=== PATIENT | female | born 1990 | race Caucasian/White ===

== ENCOUNTER 2020-03-21 00:21 | Emergency (ER) | payer OTHER ==
[~2020-03-21] VITALS: Ht 154.9 cm; Wt 63.6 kg
[2020-03-21 01:28] LABS: BASOPHILS % (AUTO) 0.6 % (0.0-2.0); EOSINOPHILS % (AUTO) 2.6 % (1.0-6.0); HEMATOCRIT 36.3 % (36-46); HEMOGLOBIN 11.4 g/dL (12.0-16.0); LYMPHOCYTES # (AUTO) 1.9 K/uL (1.0-4.8); LYMPHOCYTES % (AUTO) 27.8 % (22.0-44.0); MEAN CORPUSCULAR HEMOGLOBIN 24.8 pg (26.0-34.0); MEAN CORPUSCULAR HGB CONC 31.3 G/dL (31.0-37.0); MEAN CORPUSCULAR VOLUME 79 fL (80-100); MONOCYTES # (AUTO) 0.5 K/uL (0.1-1.0); MONOCYTES % (AUTO) 7.8 % (2.0-9.0); NEUTROPHILS # (AUTO) 4.3 K/uL (1.8-7.7); NEUTROPHILS % (AUTO) 61.2 % (40.0-70.0); PLATELET COUNT (AUTO) 286 K/uL (150-450); RED BLOOD CELL COUNT(AUTO) 4.58 MIL/uL (4.00-5.20); RED CELL DISTRIBUTION WIDTH 18.1 % (11.5-14.5)
[2020-03-21 01:32] LABS: ANION GAP 10 mmol/L (8-16); CALCIUM, TOTAL 9.1 mg/dL (8.8-10.5); CARBON DIOXIDE 26 mmol/L (22-29); CHLORIDE 102 mmol/L (98-107); CREATININE 0.72 mg/dL (0.60-1.30); GLOMERULAR FILTR. RATE CALC > 60 mL/min (>60); GLUCOSE,RANDOM 83 mg/dL (70-110); POTASSIUM 3.9 mmol/L (3.5-5.1); SODIUM SERUM 138 mmol/L (136-145); UREA NITROGEN, BLOOD 17 mg/dL (7-18)
[2020-03-21 01:45] LABS: ALANINE AMINOTRANSFERASE 64 U/L (12-78); ALKALINE PHOSPHATASE 61 U/L (46-116); ASPARTATE AMINOTRANSFERASE 44 U/L (15-37); BILIRUBIN,TOTAL 0.5 mg/dL (0.1-1.0); HCG,QUANTITATIVE < 1 mIU/mL (0-6); TOTAL PROTEIN, SERUM 7.7 g/dL (6.4-8.2)
[2020-03-21 01:59] VITALS: BP 121/72
== END 2020-03-21 02:18 | disposition home or self-care (01) ==
LOC: EMS 00:23
DX: F10.20 Alcohol dependence, uncomplicated (principal); Y90.0 Blood alcohol level of less than 20 mg/100 ml
CPT/HCPCS: 36415; 80053; 84702; 85025; 99283; G0480

== ENCOUNTER 2023-02-11 21:00 | Inpatient (IN) | payer OTHER ==
[~2023-02-11] VITALS: Ht 157.5 cm; Wt 61.0 kg
[2023-02-11 22:40] LABS: BASOPHILS % (AUTO) 0.9 % (0.0-2.0); EOSINOPHILS % (AUTO) 1.7 % (1.0-6.0); HEMATOCRIT 34.4 % (36-46); HEMOGLOBIN 11.1 g/dL (12.0-16.0); LYMPHOCYTES # (AUTO) 2.1 K/uL (1.0-4.8); LYMPHOCYTES % (AUTO) 26.9 % (22.0-44.0); MEAN CORPUSCULAR HGB CONC 32.3 G/dL (31.0-37.0); MEAN CORPUSCULAR VOLUME 80 fL (80-100); MONOCYTES # (AUTO) 0.6 K/uL (0.1-1.0); MONOCYTES % (AUTO) 8.3 % (2.0-9.0); NEUTROPHILS # (AUTO) 4.8 K/uL (1.8-7.7); NEUTROPHILS % (AUTO) 62.2 % (40.0-70.0); PLATELET COUNT (AUTO) 291 K/uL (150-450); RED BLOOD CELL COUNT(AUTO) 4.28 MIL/uL (4.00-5.20); RED CELL DISTRIBUTION WIDTH 18.3 % (11.5-14.5); WHITE BLOOD COUNT (AUTO) 7.8 K/uL (4.5-11.0)
[2023-02-11 23:11] LABS: ALCOHOL, BLOOD (SERUM) 53 mg/dL (0-10)
[2023-02-11 23:27] LABS: ANION GAP 10 mmol/L (8-16); CALCIUM, TOTAL 9.3 mg/dL (8.8-10.5); CARBON DIOXIDE 28 mmol/L (22-29); CHLORIDE 104 mmol/L (98-107); CREATININE 0.67 mg/dL (0.60-1.30); GLOMERULAR FILTR. RATE CALC > 60 mL/min (>60); GLUCOSE,RANDOM 84 mg/dL (70-110); POTASSIUM 4.3 mmol/L (3.5-5.1); SODIUM SERUM 142 mmol/L (136-145); UREA NITROGEN, BLOOD 9 mg/dL (7-18)
[2023-02-11 23:32] LABS: ALANINE AMINOTRANSFERASE 67 U/L (12-78); ALBUMIN 3.9 g/dL (3.4-5.0); ALKALINE PHOSPHATASE 69 U/L (46-116); ASPARTATE AMINOTRANSFERASE 72 U/L (15-37); BILIRUBIN,TOTAL 0.2 mg/dL (0.1-1.0); TOTAL PROTEIN, SERUM 7.7 g/dL (6.4-8.2)
[2023-02-11] MEDS ORDERED: MAGNESIUM SULFATE 2 GM, MVI, ADULT NO.1 WITH VIT K 10 ML, THIAMINE 100 MG, FOLIC ACID 1... IV ONE ×5 (23:45)
[2023-02-12] MEDS ORDERED: LORazepam 2 MG TABLET PO ONE
[2023-02-12] MEDS ORDERED: ONDANSETRON HCL 4 MG/2 ML VIAL IVP ONE (00:15)
[2023-02-12] MEDS ORDERED: ACETAMINOPHEN 325 MG TABLET PO PRN (02:00)
[2023-02-12] MEDS ORDERED: 0.9% SODIUM CHLORIDE 10 ML SYRINGE IVP PRN (02:00)
[2023-02-12] MEDS ORDERED: ONDANSETRON HCL 4 MG/2 ML VIAL IVP PRN (02:00)
[2023-02-12 04:04] VITALS: BP 119/86; PULSE 63; RESP 20; TEMP 97.7
[2023-02-12] MEDS ORDERED: INFLUENZA VIRUS VACCINE QVS 2023-24 (6MO+)/PF 60 MCG/0.5 ML SYRINGE IM. ONE (06:45)
[2023-02-12 09:48] VITALS: BP 121/58; PULSE 83; RESP 18; TEMP 97.7
[2023-02-12 14:29] LABS: PH,URINE DRUG SCREEN 6.5 (5.0-8.0)
[2023-02-12 14:38] LABS: ALCOHOL, URINE DRUG SCREEN NEGATIVE (NEGATIVE); AMPHET/METH SCREEN,URINE POSITIVE (NEGATIVE); BARBITURATE SCREEN, URINE NEGATIVE (NEGATIVE); BENZODIAZEPINES SCREEN,URINE NEGATIVE (NEGATIVE); CANNABINOID SCREEN,URINE POSITIVE (NEGATIVE); COCAINE SCREEN,URINE NEGATIVE (NEGATIVE); METHADONE SCREEN, URINE NEGATIVE (NEGATIVE); OPIATE SCREEN,URINE NEGATIVE (NEGATIVE); PHENCYCLIDINE SCREEN,URINE NEGATIVE (NEGATIVE)
[2023-02-12] MEDS ORDERED: ChlordiazePOXIDE HCL 25 MG CAPSULE PO PRN (16:15)
[2023-02-12] MEDS: 1: MAGNESIUM SULFATE 2 GM, MVI, ADULT NO.1 WITH VIT K 10 ML, THIAMINE 100 MG, FOLIC ACID IV SCH ×5 (17:06)
[2023-02-12 18:17] VITALS: BP 113/68; PULSE 84; RESP 18; TEMP 97.9; O2SAT 100
[2023-02-12 19:41] VITALS: BP 108/62; PULSE 85; RESP 20; TEMP 98.2; O2SAT 100
[2023-02-12] MEDS: ACETAMINOPHEN 325 MG TABLET PO PRN (22:10)
[2023-02-13 04:53] VITALS: BP 109/68; PULSE 73; RESP 18; TEMP 98.6
[2023-02-13] MEDS ORDERED: SODIUM CHLORIDE 0.9% 1,000 ML ONE (06:53)
[2023-02-13] MEDS: 1: MAGNESIUM SULFATE 2 GM, MVI, ADULT NO.1 WITH VIT K 10 ML, THIAMINE 100 MG, FOLIC ACID IV SCH ×10 (06:54→19:46)
[2023-02-13] MEDS ORDERED: ChlordiazePOXIDE HCL 25 MG CAPSULE PO PRN (07:00)
[2023-02-13 08:00] VITALS: BP 108/65; PULSE 76; RESP 20; TEMP 98
[2023-02-13] MEDS: ChlordiazePOXIDE HCL 25 MG CAPSULE PO SCH ×4 (08:02→23:58)
[2023-02-13] MEDS ORDERED: MIRT-89 PO (12:59)
[2023-02-13] MEDS ORDERED: BUPR-344 PO (12:59)
[2023-02-13] MEDS: ACETAMINOPHEN 325 MG TABLET PO PRN (17:49)
[2023-02-13 20:47] VITALS: BP 116/78; PULSE 80; RESP 20; TEMP 98
[2023-02-13] MEDS ORDERED: BuPROPion HCL 75 MG TABLET PO ONE (21:45)
[2023-02-13] MEDS ORDERED: MIRTAZAPINE 15 MG TABLET PO ONE (21:45)
[2023-02-14 05:27] VITALS: BP 119/65; PULSE 76; RESP 20; TEMP 98.1
[2023-02-14] MEDS: ChlordiazePOXIDE HCL 25 MG CAPSULE PO SCH ×4 (08:26→20:29)
[2023-02-14 09:00] VITALS: BP 92/58; PULSE 77; RESP 19; TEMP 98.3
[2023-02-14] MEDS: ACETAMINOPHEN 325 MG TABLET PO PRN (10:01)
[2023-02-14] MEDS: 1: MAGNESIUM SULFATE 2 GM, MVI, ADULT NO.1 WITH VIT K 10 ML, THIAMINE 100 MG, FOLIC ACID IV SCH ×5 (10:02)
[2023-02-14] MEDS: BuPROPion HCL 75 MG TABLET PO SCH ×2 (12:08→20:30)
[2023-02-14 16:17] VITALS: BP 95/56; PULSE 74; RESP 19; TEMP 98.4
[2023-02-14 19:50] VITALS: BP 110/54; PULSE 82; RESP 18; TEMP 97.9
[2023-02-14] MEDS: MIRTAZAPINE 15 MG TABLET PO SCH (20:29)
[2023-02-15] MEDS: 1: MAGNESIUM SULFATE 2 GM, MVI, ADULT NO.1 WITH VIT K 10 ML, THIAMINE 100 MG, FOLIC ACID IV SCH ×5 (00:09)
[2023-02-15 03:57] VITALS: BP 101/58; PULSE 73; RESP 18; TEMP 98.8
[2023-02-15] MEDS ORDERED: ChlordiazePOXIDE HCL 10 MG CAPSULE PO PRN (07:00)
[2023-02-15] MEDS: BuPROPion HCL 75 MG TABLET PO SCH ×2 (08:14→20:10)
[2023-02-15 08:47] VITALS: BP 112/63; PULSE 80; RESP 19; TEMP 97.8
[2023-02-15] MEDS ORDERED: ChlordiazePOXIDE HCL 10 MG CAPSULE PO SCH (09:00)
[2023-02-15] MEDS: HydrOXYzine PAMOATE 50 MG CAPSULE PO PRN (14:47)
[2023-02-15 17:18] VITALS: BP 108/58; PULSE 77; RESP 19; TEMP 97.9
[2023-02-15] MEDS: MIRTAZAPINE 15 MG TABLET PO SCH (20:10)
[2023-02-15 20:24] VITALS: BP 112/61; PULSE 86; RESP 19; TEMP 98.1
[2023-02-16 03:24] VITALS: BP 98/55; PULSE 71; RESP 18; TEMP 98
[2023-02-16] MEDS ORDERED: ChlordiazePOXIDE HCL 10 MG CAPSULE PO PRN (07:00)
[2023-02-16] MEDS: BuPROPion HCL 75 MG TABLET PO SCH (07:52)
[2023-02-16] MEDS: HydrOXYzine PAMOATE 50 MG CAPSULE PO PRN (08:54)
[2023-02-16 11:11] VITALS: BP 107/88; PULSE 76; RESP 20; TEMP 98.3
== END 2023-02-16 12:45 | DRG 897 ==
LOC: EMS 21:01 → 6S 02-12 02:33
PROVIDERS: ADMIT Hospitalist; ATTEND Hospitalist
DX: F10.139 Alcohol abuse with withdrawal, unspecified (principal); F41.9 Anxiety disorder, unspecified; F17.200 Nicotine dependence, unspecified, uncomplicated; J45.909 Unspecified asthma, uncomplicated; Z88.0 Allergy status to penicillin
CPT/HCPCS: 80053; 80307; 85025; 93005; 99291; G0480; J2405; J3411; J3475; J3490; J7030

== ENCOUNTER 2024-12-27 23:42 | Inpatient (IN) | payer MEDICAID, OTHER ==
[~2024-12-27] VITALS: Ht 157.5 cm; Wt 68.9 kg
[~2024-12-27 23:42] MED LIST: BUPR-344 PO; MIRT-89 PO
[2024-12-28] MEDS ORDERED: LORazepam 2 MG/ML VIAL ONE (00:14)
[2024-12-28] MEDS: LORazepam 2 MG/ML VIAL IM ONE (00:45)
[2024-12-28] MEDS ORDERED: ZOLPIDEM TARTRATE 10 MG TABLET PO PRN (01:15)
[2024-12-28 02:14] LABS: PLATELET COUNT (AUTO) 266 K/uL (150-450); RED BLOOD CELL COUNT(AUTO) 4.40 MIL/uL (4.00-5.20); RED CELL DISTRIBUTION WIDTH 14.6 % (11.5-14.5); WHITE BLOOD COUNT (AUTO) 5.6 K/uL (4.5-11.0)
[2024-12-28 02:23] LABS: CALCIUM, TOTAL 8.9 mg/dL (8.8-10.5); CREATININE 0.75 mg/dL (0.60-1.30); GLOMERULAR FILTR. RATE CALC > 60 mL/min (>60); GLUCOSE,RANDOM 96 mg/dL (70-110); SODIUM SERUM 144 mmol/L (136-145); UREA NITROGEN, BLOOD 10 mg/dL (7-18)
[2024-12-28 02:40] LABS: COVID AG,FIA SOURCE NASAL SWAB
[2024-12-28 02:50] LABS: SARS-COV2 (COVID) ANTIGEN,FIA Negative (Negative)
[2024-12-28 05:45] VITALS: O2SAT 97
[2024-12-28 06:32] LABS: APPEARANCE,URINE CLEAR (CLEAR); GLUCOSE, URINE (UA) NEGATIVE (NEGATIVE); LEUKOCYTE ESTERASE ,URINE NEGATIVE (NEGATIVE); NITRATE,URINE NEGATIVE (NEGATIVE); OCCULT BLOOD,URINE NEGATIVE (NEGATIVE); PH,URINE DRUG SCREEN 5.0 (5.0-8.0); SPECIFIC GRAVITIY, URINE 1.013 (1.003-1.030)
[2024-12-28 07:32] LABS: ALCOHOL, URINE DRUG SCREEN POSITIVE (NEGATIVE); AMPHET/METH SCREEN,URINE NEGATIVE (NEGATIVE); BARBITURATE SCREEN, URINE NEGATIVE (NEGATIVE); CANNABINOID SCREEN,URINE NEGATIVE (NEGATIVE); COCAINE SCREEN,URINE NEGATIVE (NEGATIVE); METHADONE SCREEN, URINE NEGATIVE (NEGATIVE)
[2024-12-28 14:19] VITALS: BP 110/75; PULSE 97; RESP 16; TEMP 97.5; O2SAT 100
[2024-12-28] MEDS ORDERED: PETROLATUM,WHITE 28 GM JELLY TP PRN ×2 (15:30→19:45)
[2024-12-28] MEDS ORDERED: IBUPROFEN 400 MG TABLET PO PRN (15:30)
[2024-12-28] MEDS ORDERED: ALBUTEROL SULFATE HFA 90 MCG/PUFF 8 GM INHALER IH PRN ×2 (15:30→19:45)
[2024-12-28] MEDS ORDERED: NICOTINE 14 MG/24 HOUR PATCH TD PRN (15:30)
[2024-12-28] MEDS ORDERED: ACETAMINOPHEN 325 MG TABLET PO PRN ×2 (15:30→19:45)
[2024-12-28] MEDS ORDERED: DOCUSATE SODIUM 100 MG CAPSULE PO PRN ×2 (15:30→19:45)
[2024-12-28] MEDS ORDERED: MAG HYDROX/ALUMINUM HYD/SIMETH ES 30 ML SUSPENSION UDCUP PO PRN ×2 (15:30→19:45)
[2024-12-28] MEDS ORDERED: ONDANSETRON 4 MG TABLET PO PRN ×2 (15:30→19:45)
[2024-12-28] MEDS ORDERED: GuaiFENesin/D-METHORPHAN [SUGAR-FREE] 200-20MG/10 ML SYRUP UDCUP PO PRN (15:30)
[2024-12-28] MEDS ORDERED: MAGNESIUM HYDROXIDE SUSPENSION 30 ML UDCUP PO PRN ×2 (15:30→19:45)
[2024-12-28] MEDS ORDERED: LOPERAMIDE HCL 2 MG CAPSULE PO PRN ×2 (15:30→19:45)
[2024-12-28] MEDS ORDERED: OMEPRAZOLE 20 MG CAPSULE PO PRN (19:45)
[2024-12-28] MEDS ORDERED: BENZOCAINE/MENTHOL [CEPACOL] LOZENGE PO PRN (19:45)
[2024-12-28] MEDS ORDERED: IBUPROFEN 600 MG TABLET PO PRN (19:45)
[2024-12-28] MEDS ORDERED: BACITRACIN 28 GM OINTMENT TP PRN (19:45)
[2024-12-28 20:24] VITALS: BP 106/99; PULSE 88; RESP 17; TEMP 97.5; O2SAT 98
[2024-12-29 08:17] VITALS: BP 106/100; PULSE 80; RESP 17; TEMP 98; O2SAT 99
[2024-12-29 09:04] LABS: PLATELET COUNT (AUTO) 230 K/uL (150-450); RED BLOOD CELL COUNT(AUTO) 4.29 MIL/uL (4.00-5.20); RED CELL DISTRIBUTION WIDTH 14.4 % (11.5-14.5); WHITE BLOOD COUNT (AUTO) 6.4 K/uL (4.5-11.0)
[2024-12-29 09:33] LABS: ASPARTATE AMINOTRANSFERASE 23 U/L (15-37); CALCIUM, TOTAL 8.8 mg/dL (8.8-10.5); CHOL/HDL RATIO 2.7 (3.9-5.7); CREATININE 0.62 mg/dL (0.60-1.30); GLOMERULAR FILTR. RATE CALC > 60 mL/min (>60); GLUCOSE,RANDOM 127 mg/dL (70-110); LDL CHOL (CALC.) 110 mg/dL (0-130); SODIUM SERUM 138 mmol/L (136-145); TOTAL PROTEIN, SERUM 7.2 g/dL (6.4-8.2); UREA NITROGEN, BLOOD 16 mg/dL (7-18)
[2024-12-29 20:29] VITALS: BP 121/83; PULSE 92; RESP 18; TEMP 97.2; O2SAT 99
[2024-12-30 08:22] VITALS: BP 107/80; PULSE 115; RESP 15; TEMP 98.8; O2SAT 97
[2024-12-30] MEDS: POTASSIUM CHLORIDE 20 MEQ ER TABLET PO ONE (08:41)
[2024-12-30 09:34] VITALS: BP 109/79; PULSE 96; RESP 16; O2SAT 98
== END 2024-12-30 15:07 | disposition home or self-care (01) | DRG 750 ==
LOC: EMS 23:43 → B3A 12-28 10:27
PROVIDERS: ADMIT Psychiatry & Neurology Psychiatry; ATTEND Psychiatry & Neurology Psychiatry
PROC: GZ58ZZZ Individual Psychotherapy, Cognitive-Behavioral (ICD-10-PCS; 2024-12-28)
PROC: GZ56ZZZ Individual Psychotherapy, Supportive (ICD-10-PCS; 2024-12-28)
PROC: GZHZZZZ Group Psychotherapy (ICD-10-PCS; principal; 2024-12-30)
DX: F29 Unspecified psychosis not due to a substance or known physiological condition (principal); E87.6 Hypokalemia; F10.129 Alcohol abuse with intoxication, unspecified; F19.10 Other psychoactive substance abuse, uncomplicated; I10 Essential (primary) hypertension; J45.909 Unspecified asthma, uncomplicated; Z20.822 Contact with and (suspected) exposure to COVID-19; F41.9 Anxiety disorder, unspecified; F17.200 Nicotine dependence, unspecified, uncomplicated; F16.10 Hallucinogen abuse, uncomplicated; Y90.8 Blood alcohol level of 240 mg/100 ml or more; F11.90 Opioid use, unspecified, uncomplicated; Z88.0 Allergy status to penicillin; Z79.899 Other long term (current) drug therapy
CPT/HCPCS: 80048; 80053; 80061; 80307; 81003; 83036; 84436; 84443; 85025; 96372; 99291; G0480; J1200; J1630; J2060